=== PATIENT | female | born 1980 | race Caucasian/White ===

== ENCOUNTER 2022-01-01 19:44 | Observation (INO) | payer OTHER, MEDICAID, SELFPAY ==
[2022-01-01] VITALS (13 sets, daily range): BP systolic 108–133; BP diastolic 64–83; PULSE 70–98; RESP 12–20; TEMP 36.9–37.2; O2SAT 97–100; BMI 22.4
--- NOTE | 2022-01-01 20:00 | ED_ITS ---
HPI - General Adult General Chief complaint: Abdominal Pain Stated complaint: Severe ABD pain Time Seen by Provider: 01/01/22 19:53 Source: patient Mode of arrival: Family Vehicle Limitations: no limitations History of Present Illness HPI narrative: 41-year-old female. Has a history of a left-sided tubal ectopic and has had her fallopian tube removed on that side who is here for evaluation of right-sided abdominal discomfort. Is also having nausea. No vomiting. No diarrhea. She did urinate earlier today which she states improved some of the pressure that she is having in her right lower quadrant but did not take the pain completely away. Woke her from sleep last evening. No fevers. No vaginal bleeding. No rashes. Did take some ibuprofen prior to arrival without much improvement. Related Data Allergies Allergy/AdvReac Type Severity Reaction Status Date / Time sumatriptan [From Imitrex] Allergy Difficulty Verified 01/01/22 19:55 Breathing Review of Systems Constitutional Constitutional: Denies fever(s) Cardiovascular Cardiovascular: Reports system reviewed and no additional complaints, except as documented Respiratory Respiratory: Reports system reviewed and no additional complaints, except as documented Gastrointestinal Gastrointestinal: Reports as per HPI and Reports system reviewed and no additional complaints, except as documented Genitourinary Genitourinary: Reports system reviewed and no additional complaints, except as documented Musculoskeletal Musculoskeletal: Reports system reviewed and no additional complaints, except as documented Integumentary/Breasts Skin/Breast: Reports system reviewed and no additional complaints, except as documented Hematologic/Lymphatic On Anticoagulants: No Patient History Medical History Ectopic Social History Smoking Status: Current every day smoker Smoking Status: Current every day smoker alcohol intake frequency: a few times a month Substance Use Type: does not use Exam Initial Vital Signs Initial Vital Signs: Vital Signs Temperature 98.5 F 01/01/22 19:53 Pulse Rate 70 01/01/22 19:53 Respiratory Rate 18 01/01/22 19:53 Blood Pressure 129/73 01/01/22 19:53 Pulse Oximetry 99 01/01/22 19:53 Const General: cooperative and well developed HENMT Head: normal to inspection and normocephalic Resp Effort & Inspection: normal respiratory effort Cardio Rate: regular rate GI Inspection: normal to inspection and non-distended Palpation: No guarding and tender (Right lower quadrant/right adnexa) General: No CVA tenderness Back/Spine/Pelvis Back: No CVA tenderness Skin General: no rashes or lesions noted Neuro General: patient alert and patient awake Extrem General: normal to inspection Psych Appearance: grossly normal and well kempt Course Orders Ordered: ED Orders 01/01/22 20:00 US abdomen limited Stat US pelvic complete Stat Complete Blood Count AUTO DIFF Stat Comprehensive Metabolic Panel Stat Lipase Stat Test Serum,Qual Stat 01/01/22 22:17 Consult to General Surgery Urgent Sodium Chloride (Normal Saline 0.9%) 1,000 mls @ 125 mls/hr IV CONT SHAYNE Morphine Sulfate (Morphine 2 Mg/Ml Inj) 4 mg IV Q4HR PRN PRN Reason: Pain, Mild (1-3) Ondansetron HCl (Ondansetron 4 Mg/2 Ml Inj) 4 mg IV Q4HR PRN PRN Reason: Nausea And Vomiting Discontinued Medications Sodium Chloride (Normal Saline 0.9%) 1,000 mls @ 1,000 mls/hr IV BOLUS ONE Stop: 01/01/22 20:52 Last Infusion: 01/01/22 21:43 Dose: 0 mls/hr Documented by: Admin: 01/01/22 20:09 Dose: 1,000 mls/hr Documented by: VERONICA Piperacillin Sod/Tazobactam (Sod 4.5 gm/ Sodium Chloride) 100 mls @ 200 mls/hr IV NOW ONE Stop: 01/01/22 22:18 Morphine Sulfate (Morphine 4 Mg/Ml Inj) 4 mg IV NOW ONE Stop: 01/01/22 20:01 Last Admin: 01/01/22 20:08 Dose: 4 mg Documented by: VERONICA Morphine Sulfate (Morphine 4 Mg/Ml Inj) 4 mg IV NOW ONE Stop: 01/01/22 20:39 Last Admin: 01/01/22 20:46 Dose: 4 mg Documented by: KLEVER Ondansetron HCl (Ondansetron 4 Mg/2 Ml Inj) 4 mg IV NOW ONE Stop: 01/01/22 20:01 Last Admin: 01/01/22 20:09 Dose: 4 mg Documented by: VERONICA Vital Signs Vital signs: Vital Signs - 8 hr 01/01/22 19:53 01/01/22 20:48 01/01/22 20:53 Temperature 98.5 F Pulse Rate 70 74 74 Respiratory Rate 18 Blood Pressure 129/73 133/74 129/78 Pulse Oximetry 99 100 100 01/01/22 20:56 01/01/22 21:00 01/01/22 21:30 Temperature Pulse Rate 76 76 98 H Respiratory Rate Blood Pressure 127/76 116/71 133/64 Pulse Oximetry 99 99 98 01/01/22 21:40 Temperature Pulse Rate 80 Respiratory Rate 20 Blood Pressure 121/66 Pulse Oximetry 99 Medical Decision Making Lab Data Lab results reviewed: Yes I reviewed the patient's lab results. Result diagrams: 01/01/22 20:00 01/01/22 20:00 Labs: Lab Results 01/01/22 01/01/22 01/01/22 Range/Units 20:00 20:00 20:00 WBC 12.4 H (4.5-11.0) X10^3/uL RBC 4.31 (4.0-5.2) X10^6/uL Hgb 14.1 (12.0-16.0) g/dL Hct 40.7 (36-46) % MCV 94.5 (80-100) fL MCH 32.8 (26-34) PG MCHC 34.8 (30-36) % RDW 13.1 (11.6-14.8) % Plt Count 268 (150-400) X10^3/uL Neut % (Auto) 75.4 H (50-75) % Lymph % (Auto) 17.2 L (25-40) % Stearns % (Auto) 6.5 (3-14) % Eos % (Auto) 0.3 L (2-4) % Baso % (Auto) 0.6 (0-2) % Neut # (Auto) 9400 H (2549-1237) /uL Lymph # (Auto) 2100 (1783-1682) /uL Stearns # (Auto) 800 (0-900) /uL Eos # (Auto) 0 (0-450) /uL Baso # (Auto) 100 (0-100) /uL Sodium 139 (137-145) mmol/L Potassium 3.9 (3.4-5.1) mmol/L Chloride 106 (98-107) mmol/L Carbon Dioxide 27 (22-32) mmol/L BUN 11 (7-17) mg/dL Creatinine 0.77 (0.52-1.04) mg/dL Estimated GFR > 60 (>60) mL/min BUN/Creatinine Ratio 14.3 (6-22) Glucose 89 (70-100) mg/dL Calcium 9.0 (8.4-10.2) mg/dL Total Bilirubin 1.1 (0.2-1.3) mg/dL AST 37 H (14-36) IU/L ALT 17 (<35) IU/L Alkaline Phosphatase 52 (38-126) U/L Total Protein 7.5 (6.3-8.2) g/dL Albumin 4.5 (3.5-5.0) g/dL Globulin 3.0 (1.7-4.1) g/dL Albumin/Globulin Ratio 1.5 (1.0-2.8) Lipase 43 (23-300) U/L Serum , Qual Negative (Negative) Imaging Data US - abdomen: Radiologist's Impression: [place] [address] Ultrasound Report Signed Patient: Keya Gage MR#: [id number] : 1980 Acct:[id number] Age/Sex: 41 / F Date of Service: 01/01/22 Loc: ED Accession Number: [id number] ?? Procedure: US abdomen limited Ordering Provider: Samuel Witt D.O. PROCEDURE:? US ABDOMEN LIMITED ? INDICATIONS:? RIGHT LOWER QUADRANT PAIN ? TECHNIQUE:? Real-time focused scanning was performed of the abdomen with attention to the appendix, with image documentation.? ? COMPARISON:? None. ? FINDINGS:? Appendix visualization:? Not visualized ? Appendix measurements:? Not applicable ? Associated findings:? Echogenic fat:? Not seen Appendiceal compressibility:? Not applicable Appendicoliths:? Not applicable Nearby free fluid:? Not seen Lymphadenopathy:? Not seen Tenderness on exam:? Present. ? IMPRESSION:? Please also refer to the dedicated pelvic ultrasound performed today which identifies a small amount of free fluid at the right adnexa, what appears to be an abnormally enlarged appendix, a normal appearing right ovary, and also a normal appearing uterus.? Overall, therefore, the likelihood of appendicitis is considered significant and surgical consultation is recommended.? Findings discussed at this time in detail with the emergency room physician caring for the patient. ? ? Dictated by: Delvin Walker M.D. on 01/01/2022 at 22:04 ? ? Approved by: Delvin Walker M.D. on 01/01/2022 at 22:07 US - CREMATORY ATTENDANT: Radiologist's Impression: [place] [address] Ultrasound Report Signed Patient: Keya Gage MR#: [id number] : 1980 Acct:[id number] Age/Sex: 41 / F Date of Service: 01/01/22 Loc: ED Accession Number: [id number] ?? Procedure: US pelvic complete Ordering Provider: Samuel Witt D.O. PROCEDURE:? US PELVIC COMPLETE ? INDICATIONS:? RIGHT ADNEXAL PAIN ? TECHNIQUE:? Real-time scanning was performed of the pelvic organs, with image documentation.? Additional endovaginal scanning was necessary due to incomplete visualization of the adnexal and endometrial structures by transabdominal scanning.? ? COMPARISON:? None. ? FINDINGS:? ?? Uterus:? Uterus is anteverted and normal in size at 4.3 x 5.2 x 8.6 cm. The myometrium is homogeneous, normal. ? The endometrium measures 1.4 cm combined thickness.? ? Ovaries:? The right ovary measures 2.3 x 1.7 x 2.4 cm, normal.? The left ovary could not be seen due to bowel gas.. No adnexal masses are seen but there is a tubular structure at the right lower quadrant associated with significant tenderness, measuring up to 1.4 cm in maximal transverse dimension with an appearance suggestive of acute appendicitis, with a small amount of adjacent free fluid.. ? Other:? No pathologic free abdominal or pelvic fluid. ? ? IMPRESSION:? Suspect acute appendicitis, right lower quadrant, in this setting of normal appearing right ovary and a tubular 1.4 cm diameter structure identified during sonographic assessment of the right ovary.? Nonvisualization of the left ovary due to bowel gas.? Normal appearing uterus. ? Surgical consultation likely is warranted, and depending on the clinical status follow-up CT scanning also may be warranted at this time. ? Dictated by: Delvin Walker M.D. on 01/01/2022 at 21:58 ? ? Approved by: Delvin Walker M.D. on 01/01/2022 at 22:03?? MDM Narrative Medical decision making narrative: Afebrile, leukocytosis, right lower quadrant abdominal pain, test ne gative. Right ovary is unremarkable. No vaginal bleeding or discharge reported from the patient. Ultrasounds concerning for tubular structure in the right lower quadrant consistent with appendicitis. Discussed the case with Dr. Sánchez on-call with General surgery. Will start the patient on antibiotics. Will admit for observation. Did discuss this with the patient who expressed understanding and agreement. Discharge Plan Departure Patient Disposition: Admitted as Observation Clinical Impression: Acute appendicitis Admit Date/Time: 01/01/22 22:17 Admit Provider: Abeba Sánchez
--- NOTE | 2022-01-01 20:00 | DI.US.S_ITS ---
PROCEDURE: US ABDOMEN LIMITED INDICATIONS: RIGHT LOWER QUADRANT PAIN TECHNIQUE: Real-time focused scanning was performed of the abdomen with attention to the appendix, with image documentation. COMPARISON: None. FINDINGS: Appendix visualization: Not visualized Appendix measurements: Not applicable Associated findings: Echogenic fat: Not seen Appendiceal compressibility: Not applicable Appendicoliths: Not applicable Nearby free fluid: Not seen Lymphadenopathy: Not seen Tenderness on exam: Present. IMPRESSION: Please also refer to the dedicated pelvic ultrasound performed today which identifies a small amount of free fluid at the right adnexa, what appears to be an abnormally enlarged appendix, a normal appearing right ovary, and also a normal appearing uterus. Overall, therefore, the likelihood of appendicitis is considered significant and surgical consultation is recommended. Findings discussed at this time in detail with the emergency room physician caring for the patient. Dictated by: Delvin Walker M.D. on 01/01/2022 at 22:04 Approved by: Delvin Walker M.D. on 01/01/2022 at 22:07
--- NOTE | 2022-01-01 20:00 | DI.US.S_ITS ---
PROCEDURE: US PELVIC COMPLETE INDICATIONS: RIGHT ADNEXAL PAIN TECHNIQUE: Real-time scanning was performed of the pelvic organs, with image documentation. Additional endovaginal scanning was necessary due to incomplete visualization of the adnexal and endometrial structures by transabdominal scanning. COMPARISON: None. FINDINGS: Uterus: Uterus is anteverted and normal in size at 4.3 x 5.2 x 8.6 cm. The myometrium is homogeneous, normal. The endometrium measures 1.4 cm combined thickness. Ovaries: The right ovary measures 2.3 x 1.7 x 2.4 cm, normal. The left ovary could not be seen due to bowel gas.. No adnexal masses are seen but there is a tubular structure at the right lower quadrant associated with significant tenderness, measuring up to 1.4 cm in maximal transverse dimension with an appearance suggestive of acute appendicitis, with a small amount of adjacent free fluid.. Other: No pathologic free abdominal or pelvic fluid. IMPRESSION: Suspect acute appendicitis, right lower quadrant, in this setting of normal appearing right ovary and a tubular 1.4 cm diameter structure identified during sonographic assessment of the right ovary. Nonvisualization of the left ovary due to bowel gas. Normal appearing uterus. Surgical consultation likely is warranted, and depending on the clinical status follow-up CT scanning also may be warranted at this time. Dictated by: Delvin Walker M.D. on 01/01/2022 at 21:58 Approved by: Delvin Walker M.D. on 01/01/2022 at 22:03
[2022-01-01 20:06] LABS: Add Manual Diff / Slide Review NO; Basophils Absolute Auto 100 /uL (0-100); Basophils Percent Auto 0.6 % (0-2); Eosinophils Absolute Auto 0 /uL (0-450); Eosinophils Percent Auto 0.3 % (2-4); Hematocrit 40.7 % (36-46); Hemoglobin 14.1 g/dL (12.0-16.0); Lymphocytes Absolute Auto 2100 /uL (1100-4500); Lymphocytes Percent Auto 17.2 % (25-40); Mean Corpuscular HGB Conc 34.8 % (30-36); Mean Corpuscular Hemoglobin 32.8 PG (26-34); Mean Corpuscular Volume 94.5 fL (80-100); Monocytes Absolute Auto 800 /uL (0-900); Monocytes Percent Auto 6.5 % (3-14); Neutrophils Absolute Auto 9400 /uL (1500-7000); Neutrophils Percent Auto 75.4 % (50-75); Platelet Count 268 X10^3/uL (150-400); Red Blood Cell Count 4.31 X10^6/uL (4.0-5.2); Red Cell Distribution Width 13.1 % (11.6-14.8); White Blood Cell Count 12.4 X10^3/uL (4.5-11.0)
[2022-01-01] MEDS: MORPHINE 4 MG/ML INJ IV ×2 (20:08→20:46)
[2022-01-01] MEDS: SODIUM CHLORIDE 0.9% 1,000 ML 1000 ML IV (20:09)
[2022-01-01] MEDS: ONDANSETRON 4 MG/2 ML INJ IV (20:09)
[2022-01-01 20:30] LABS: Alanine Aminotransferase 17 IU/L (<35); Albumin 4.5 g/dL (3.5-5.0); Albumin Globulin Ratio 1.5 (1.0-2.8); Alkaline Phosphatase 52 U/L (38-126); Aspartate Aminotransferase 37 IU/L (14-36); BUN Creatinine Ratio 14.3 (6-22); Bilirubin Total 1.1 mg/dL (0.2-1.3); Blood Urea Nitrogen 11 mg/dL (7-17); Carbon Dioxide 27 mmol/L (22-32); Chloride 106 mmol/L (98-107); Estimated Glomerular Filt Rate > 60 mL/min (>60); Glucose 89 mg/dL (70-100); Lipase 43 U/L (23-300); Potassium 3.9 mmol/L (3.4-5.1); Sodium 139 mmol/L (137-145); Total Protein 7.5 g/dL (6.3-8.2)
[2022-01-01 20:35] LABS: HEMOLYSIS 56 (0-50)
[2022-01-01 20:41] LABS: Pregnancy Test Serum,Qual Negative (Negative)
[2022-01-01] MEDS: PIPERACILLIN/TAZO 4.5 GM in SODIUM CHLORIDE 0.9% 100 ML IV (22:35)
[2022-01-01] MEDS: SODIUM CHLORIDE 0.9% 1,000 ML 125 ML IV (22:36)
[2022-01-01] MEDS: MORPHINE 2 MG/ML INJ 4 MG IV (22:37)
[2022-01-02] VITALS (21 sets, daily range): BP systolic 85–104; BP diastolic 49–66; PULSE 57–88; RESP 10–20; TEMP 36.1–38.7; O2SAT 92–97; BMI 22.4
--- NOTE | 2022-01-02 | PATH_ITS ---
[facility] Accession Number: [id number] . 01 Material submitted: . appendix - APPENDIX . 01 Diagnosis: Appendix, Appendectomy: Acute suppurative appendicitis with perforation and serositis. Negative for dysplasia and malignancy. MRV 01/07/2022 0953 Local . 01 Electronically signed: . Florida Sanders MD, Pathologist NPI- [id number] . 01 Gross description: . Received in formalin and labeled with the patient's name and appendix and consists of a vermiform appendix measuring 6.1 cm in length and 1.1 cm in diameter with a small amount of attached yellow mesoappendix extending out to 1.0 cm. The serosa is crespo-plasencia with dilated vasculature and adherent possible suppurative exudate. A full thickness defect is noted measuring 1.1 cm in greatest dimension and is located 1.0 cm from the surgical margin. The surgical margin is received closed with sutures and is inked blue. Serial sectioning reveals a lumen obstructed by two brown solid structures consistent with fecalith ranging from 1.8 to 2.0 cm in greatest dimension. The luminal diameter measures up to 1.0 cm in greatest dimension. The braun are dusky plasencia and measure up to 0.3 cm thick. No lesions are identified. Evs Manager sections are submitted as follows: . A1: One-half of the distal tip and surgical margin. A2: Evs Manager cross sections to include area full thickness defect. ([id number]) /[facility] 01/06/2022 1801 Local . 01 Pathologist provided ICD-10: K35.80 . 01 CPT . 832758 Specimen Comment: A courtesy copy of this report has been sent to [phone] Performed at: 01 [facility] [address], [place], [place] [id number] MD Jose Lee MD Phone: [phone]
[2022-01-02] MEDS: MORPHINE 2 MG/ML INJ 4 MG IV ×2 (02:32→06:14)
--- NOTE | 2022-01-02 05:48 | PC.NURSE ---
Pt arrived with pain from ED. Rested uncomfortably until next dose at 0230. Slept well for rest of night, nest dose given at 0610, pt is more comfortable but still in pain. Pt taking Suboxone regularly as a home medication. Last dose of suboxone on 01/01 in the am.
[2022-01-02 06:33] LABS: Add Manual Diff / Slide Review NO; Basophils Absolute Auto 0 /uL (0-100); Basophils Percent Auto 0.2 % (0-2); Eosinophils Absolute Auto 0 /uL (0-450); Hematocrit 35.6 % (36-46); Hemoglobin 12.6 g/dL (12.0-16.0); Lymphocytes Absolute Auto 900 /uL (1100-4500); Lymphocytes Percent Auto 6.4 % (25-40); Mean Corpuscular HGB Conc 35.3 % (30-36); Mean Corpuscular Volume 93.5 fL (80-100); Monocytes Absolute Auto 800 /uL (0-900); Monocytes Percent Auto 5.5 % (3-14); Neutrophils Absolute Auto 12700 /uL (1500-7000); Neutrophils Percent Auto 87.9 % (50-75); Platelet Count 224 X10^3/uL (150-400); Red Blood Cell Count 3.81 X10^6/uL (4.0-5.2); Red Cell Distribution Width 13.1 % (11.6-14.8); White Blood Cell Count 14.5 X10^3/uL (4.5-11.0)
[2022-01-02] MEDS: PIPERACILLIN/TAZO 3.375 GM in SODIUM CHLORIDE 0.9% 100 ML IV (06:41)
[2022-01-02] MEDS: KETOROLAC 30 MG/ML VIAL 15 MG IV ×2 (06:41→17:46)
--- NOTE | 2022-01-02 06:44 | DI.MRI.S_ITS ---
PROCEDURE: MR ABDOMEN WO/W CON INDICATIONS: appendicitis TECHNIQUE: Coronal HASTE, axial 2D FLASH in- and [id number]; axial breath-hold T2 FSE. Dynamic axial VIBE during the administration of contrast; post-contrast coronal VIBE or 2D FLASH with fat saturation from the hepatic dome to the iliac crests. Optional diffusion weighted imaging and ADC may be performed. COMPARISON: [facility], , US ABDOMEN LIMITED, 01/01/2022, 22:32. FINDINGS: Image quality: Excellent. Lung bases: No basal pleural effusions. Heart size is normal. Solid organs: Liver is normal in size and enhancement. Gallbladder is grossly unremarkable. Is moderate extrahepatic biliary ductal dilatation measuring 10 mm. Pancreas is normal in morphology. Spleen is normal in size and enhancement. No adrenal nodules. Both kidneys demonstrate normal size and enhancement, without hydronephrosis. Nodes and vessels: No retroperitoneal or mesenteric adenopathy by size criteria. Aorta and inferior vena cava are normal in size. Bowel and peritoneum: Unenhanced bowel loops are normal in caliber. Small amount of free fluid in pelvis, within physiological limits in a menstruating female. Blind-ending tubular structure within the right lower quadrant measuring 14 mm diameter. Bones and soft tissues: No ventral hernias. Bone marrow is normal in overall signal. IMPRESSION: 1. Findings consistent with acute appendicitis. 2. Small amount of free fluid, possibly indicating rupture. 3. Findings discussed with Dr. Abeba Sánchez on 01/02/2022 at 09:11 hours. Dictated by: Gayle Luu M.D. on 01/02/2022 at 9:05 Approved by: Gayle Luu M.D. on 01/02/2022 at 9:12
[2022-01-02] MEDS: HYDROCODONE/ACET 5/325 TABLET 1 TAB PO (09:08)
[2022-01-02] MEDS: SODIUM CHLORIDE 0.45% 1,000 ML 100 ML IV ×2 (09:10→14:13)
--- NOTE | 2022-01-02 10:27 | P.HP_ITS ---
History of Present Illness History of Present Illness Date Patient Seen: 01/02/22 Time Patient Seen: 10:27 Date of Onset of Symptoms: 01/01/22 Chief complaint: Severe ABD pain Narrative: 24 hours of abdominal pain on presentation to the ED. Localizinging in RLQ, anorexia, no diarrhea, +fever. Pain improved with antibiotics and pain meds. No previous events. Lives in [place]. Patient History Medical History Ectopic Family & Social History Social History: household members family Prior Living Arrangements House Safety & Behavioral: Feels Safe in Current Yes Environment Been Physically Hurt or No Threatened By a Person Tobacco & Substance use: Smoking Status Current every day smoker alcohol intake frequency a few times a month Substance Use Type does not use Meds Home Medications and Allergies Home Medications Medication Instructions Recorded Confirmed Type buprenorphine HCl 8 mg sublingual 8 mg SUBLINGUAL BID 01/01/22 01/01/22 History tablet multivitamin with iron 1 tab PO DAILY 01/01/22 01/01/22 History Allergies Allergy/AdvReac Type Severity Reaction Status Date / Time sumatriptan [From Imitrex] Allergy Difficulty Verified 01/01/22 19:55 Breathing Review of Systems Review of Systems ROS: Yes All systems reviewed with the patient and are negative except as otherwise documented Exam Vital Signs (past 8 hours): - 01/02/22 05:00 01/02/22 06:59 01/02/22 09:00 Temperature 100.1 F H 101.6 F H 98.2 F Pulse Rate 88 85 71 Respiratory Rate 20 14 18 Blood Pressure 102/66 98/57 L 98/58 L Pulse Oximetry 97 97 Oxygen Delivery Method Room Air Oxygen Flow Rate 0 Const General: cooperative Nutritional Appearance: underweight Orientation: alert and oriented x3 [facility] Head: normocephalic and atraumatic Ears: hearing grossly normal bilaterally Eyes General: appearance normal, both eyes and all related structures Sclera: sclerae normal Neck Neck: trachea midline Chest Chest: normal inspection of the chest Resp Effort & Inspection: normal respiratory effort and able to speak in complete sentences Cardio Rate: tachycardic Rhythm: regular rhythm GI Inspection: normal to inspection Palpation: soft and tender (RLQ tenderness to palpation) Skin General: no rashes or lesions noted and elasticity normal Neuro General: patient alert and patient oriented x3 Cognition: normal cognition Extrem General: full ROM Psych Appearance: grossly normal Mental Status: mental status grossly normal Affect: normal affect Judgment: judgment good Objective Labs Result Diagrams: 01/02/22 06:23 01/01/22 20:00 Labs: Laboratory Results - last 24 hr 01/01/22 01/01/22 01/01/22 20:00 20:00 20:00 WBC 12.4 H RBC 4.31 Hgb 14.1 Hct 40.7 MCV 94.5 MCH 32.8 MCHC 34.8 RDW 13.1 Plt Count 268 Neut % (Auto) 75.4 H Lymph % (Auto) 17.2 L Loving % (Auto) 6.5 Eos % (Auto) 0.3 L Baso % (Auto) 0.6 Neut # (Auto) 9400 H Lymph # (Auto) 2100 Loving # (Auto) 800 Eos # (Auto) 0 Baso # (Auto) 100 Sodium 139 Potassium 3.9 Chloride 106 Carbon Dioxide 27 BUN 11 Creatinine 0.77 Estimated GFR > 60 BUN/Creatinine Ratio 14.3 Glucose 89 Calcium 9.0 Total Bilirubin 1.1 AST 37 H ALT 17 Alkaline Phosphatase 52 Total Protein 7.5 Albumin 4.5 Globulin 3.0 Albumin/Globulin Ratio 1.5 Lipase 43 Serum , Qual Negative 01/02/22 06:23 WBC 14.5 H RBC 3.81 L Hgb 12.6 Hct 35.6 L MCV 93.5 MCH 33.0 MCHC 35.3 RDW 13.1 Plt Count 224 Neut % (Auto) 87.9 H Lymph % (Auto) 6.4 L Loving % (Auto) 5.5 Eos % (Auto) 0.0 L Baso % (Auto) 0.2 Neut # (Auto) 11501 H Lymph # (Auto) 900 L Loving # (Auto) 800 Eos # (Auto) 0 Baso # (Auto) 0 Sodium Potassium Chloride Carbon Dioxide BUN Creatinine Estimated GFR BUN/Creatinine Ratio Glucose Calcium Total Bilirubin AST ALT Alkaline Phosphatase Total Protein Albumin Globulin Albumin/Globulin Ratio Lipase Serum , Qual Assessment & Plan Assessment & Plan narrative: Appendicitis not responding to antibiotics Takes Subutex Plan: OR for lap appy COVID-19 COVID-19 status: Negative Time Spent With Patient Time with patient: 30 to 49 minutes with 50% spent counseling/coordinating care Critical Care time: I spent a total of [] minutes of critical care time on this patient's care today; this time is exclusive of procedural time.
[2022-01-02 10:47] LABS: COVID19 -Nasal RAPID Negative (Negative)
[2022-01-02] MEDS: LACTATED RINGERS 1,000 ML 84 ML IV ×2 (11:10→12:43)
[2022-01-02] MEDS: ACETAMINOPHEN IV 1,000 MG/100 ML VIAL 400 MG IV (11:30)
[2022-01-02] MEDS: BUPIVACAINE 0.25% (PF) 30 ML, EPINEPHrine 0.15 MG INJ (11:35)
--- NOTE | 2022-01-02 11:52 | SUR.OPER ---
Supine on padded OR bed, head on pillow, right arm secured on padded arm board at <90 degrees abduction, left arm tucked. Legs uncrossed, safety belt at thigh, gel pad under bilateral heels.
--- NOTE | 2022-01-02 12:12 | CM.DANOTE ---
Initial Discharge Plan Assessment: Case received, EMR reviewed and met with patient's lalito Mazariegos in the patient's room. He states that patient had just left for surgery and he reports he was told she would be returning to room about 13:30. 41 year old female who was admitted yesterday pm to care of surgical team. PCP: Unknown Payer: [employer], Medicaid Patient was admitted with severe abdominal pain and nausea. Imaging shows appendicitis. She is now in the OR. P: Lalito states that he and patient were told she could return home this afternoon which is their desire. Will return this afternoon to complete discharge planning assessment. (Of note, she lives in [facility] and has support with her mother and he lives in [place]. He states he will provide transportation upon dc and care for her a few days before she returns to [place].) Karma Salazar RN/DCP Discharge Planning/Care Management CM Discharge Assessment Start: 01/02/22 12:07 Freq: Status: Active Protocol: Document 01/02/22 12:09 (Rec: 01/02/22 12:12 [id number]) Discharge Planning Assessment Assigned Alarm Technician aKrma Salazar RN/Side Seam Machine Operator Advance Directives? No History Provided By Significant Other,Medical Record Prior Living Arrangements House Household Members family Type of transporation used prior to Relies on Others admit Is patient alert and oriented? Yes Barriers to Discharge No Discharge Plan Home Transportation Arrangement Lalito Mazariegos to provide Referrals Initiated None needed Whiteboard Updated in Patient Room with Yes name and ext. # of Alarm Technician Review Status In Process Next Review Type Continued Stay Review
--- NOTE | 2022-01-02 12:19 | PM.OP.1 ---
Operative Date/Time/Diagnoses Date of procedure: 01/02/22 Time of procedure: 12:20 Pre-op diagnosis: Appendicitis Post-op diagnosis: other (Ruptured appendicitis) Procedure & Clinicians Procedure: Laparoscopic appendectomy Same procedure as scheduled: Yes Indications: Appendicitis Surgeon: Abeba Sánchez Click Yes if Unassisted: Yes Anesthesia Type: General and Local Operative Notes Findings: Preop diagnosis: Acute appendicitis Postop diagnosis: Ruptured appendicitis Procedure: Laparoscopic appendectomy Findings: Early ruptured appendicitis with visible fecalith this at the rupture point Surgeon: Mayela Sánchez MD Anesthesiologist: Obdulia Carrasquillo MD Findings: Ruptured appendicitis with visible fecal liths at site of perforation Procedure: Patient placed in a supine position. Prepped and draped sterile fashion. Infraumbilical port site was placed using open technique a 12 mm port. Insufflation began all other ports were placed under direct vision including a 5 mm port in the suprapubic area and a 5 mm port left lateral abdomen. Appendix was identified. Turbid fluid as well as visible fecal lift seen upon mobilization of the appendix. I then took down the appendiceal mesentery with electrocautery and excellent hemostasis. The base of the appendix was amputated with a YUMIKO stapling device. Appendix was placed into an Endo-Catch bag pulled through the umbilical port site intact. Abdomen was irrigated and suction to a clear return, all visible fecal balls were gathered and placed into the bag were suctioned into the device. I then placed a 15 Azeri Niels drain into the pelvis looping it over to the operative site. This was brought out through a 5 mm port in suprapubic area. Sutured to the skin with 3-0 nylon. I then removed all ports and began closure. Closure consisted of interrupted 0 Vicryl for fascial closure. Skin was closed a running 4-0 Vicryl. Steri-Strips and sterile dressings were placed. Patient was awakened, extubated, taken to recovery room in stable condition with needle, instrument, sponge counts correct. Blood loss: 10 mL Specimen: Appendix Closure Type: primary Specimen(s): other (Appendix) Applied: drain(s) (15 Azeri) Estimated Blood Loss (mL): 10 Blood products transfused: none Complications: none Post-operative Condition: stable Disposition: PACU Plan for aftercare: antibiotics, observation and repeat am labs.
[2022-01-02] MEDS: fentaNYL 100 MCG/2 ML INJ IV ×2 (12:34→12:52)
[2022-01-02] MEDS: HYDROMORPHONE 2 MG INJ IV ×2 (12:54→13:00)
[2022-01-02] MEDS: OXYCODONE IR 5 MG TABLET PO (13:21)
[2022-01-02] MEDS: AMOXICILLIN/CLAV 875/125 MG 1 TAB PO ×2 (14:13→20:29)
[2022-01-02] MEDS: ACETAMINOPHEN 325 MG TABLET 650 MG PO (17:47)
--- NOTE | 2022-01-02 18:18 | PC.NURSE ---
Pt is AxOx4, independent and cooperative. VSS, c/o on abdomen and pain is controlled well with her routine Tyl and IV Toradol. Pt is eating and tolerating well. Pt already voided. MOMO drain is draining 40ml serosanguonous fluid. Lap sites C/D/I. No other changes. Continue monitor.
[2022-01-02] MEDS: OXYCODONE IR 10 MG TABLET PO (21:57)
[2022-01-03] MEDS: OXYCODONE IR 10 MG TABLET PO ×3 (04:40→12:03)
[2022-01-03] MEDS: ACETAMINOPHEN 325 MG TABLET 650 MG PO ×2 (05:02→12:02)
[2022-01-03 05:09] VITALS: BP 117/72; PULSE 68; RESP 16; TEMP 37.5; O2SAT 95
--- NOTE | 2022-01-03 05:33 | PC.NURSE ---
Shift Note: Patient was alert and orientedx4, complained of post op pain, with post op lap site x3, dressing clean, dry and intact, MOMO intact and draining well with serosanguinous output. Vital signs are stable and within acceptable limits. Patient was able to get up to use the toilet with minimal assistance.
[2022-01-03] MEDS: KETOROLAC 30 MG/ML VIAL 15 MG IV (05:48)
[2022-01-03 05:58] LABS: Add Manual Diff / Slide Review NO; Basophils Absolute Auto 100 /uL (0-100); Basophils Percent Auto 0.3 % (0-2); Eosinophils Absolute Auto 0 /uL (0-450); Hematocrit 35.1 % (36-46); Hemoglobin 12.3 g/dL (12.0-16.0); Lymphocytes Absolute Auto 800 /uL (1100-4500); Lymphocytes Percent Auto 5.3 % (25-40); Mean Corpuscular Hemoglobin 33.1 PG (26-34); Mean Corpuscular Volume 94.6 fL (80-100); Monocytes Absolute Auto 800 /uL (0-900); Neutrophils Absolute Auto 13500 /uL (1500-7000); Neutrophils Percent Auto 89.4 % (50-75); Platelet Count 210 X10^3/uL (150-400); Red Blood Cell Count 3.71 X10^6/uL (4.0-5.2); Red Cell Distribution Width 13.1 % (11.6-14.8); White Blood Cell Count 15.1 X10^3/uL (4.5-11.0)
[2022-01-03 07:00] VITALS: BP 118/74; PULSE 54; RESP 17; TEMP 36.8; O2SAT 97
[2022-01-03] MEDS: AMOXICILLIN/CLAV 875/125 MG 1 TAB PO (08:01)
[2022-01-03] MEDS: NAPROXEN 250 MG TABLET 500 MG PO (08:01)
--- NOTE | 2022-01-03 08:15 | P.PN_ITS ---
Subjective Subjective Date Patient Seen: 01/03/22 Time Patient Seen: 08:15 Interval history: Still feels uncomfortable. Is from just outside [place] and boy friend needs to go to [place] at 6 pm. Exam Vital Signs (past 8 hours): - 01/03/22 05:09 01/03/22 07:00 Temperature 99.5 F 98.2 F Pulse Rate 68 54 L Respiratory Rate 16 17 Blood Pressure 117/72 118/74 Pulse Oximetry 95 97 Oxygen Delivery Method Room Air Oxygen Flow Rate 0 Narrative Exam Narrative: abd is soft, slight distended. drain is serous. incisional tenderness. Objective Labs Result Diagrams: 01/03/22 05:40 01/01/22 20:00 Labs: Laboratory Results - last 24 hr 01/02/22 01/03/22 09:50 05:40 WBC 15.1 H RBC 3.71 L Hgb 12.3 Hct 35.1 L MCV 94.6 MCH 33.1 MCHC 35.0 RDW 13.1 Plt Count 210 Neut % (Auto) 89.4 H Lymph % (Auto) 5.3 L [place] % (Auto) 5.0 Eos % (Auto) 0.0 L Baso % (Auto) 0.3 Neut # (Auto) 99715 H Lymph # (Auto) 800 L [place] # (Auto) 800 Eos # (Auto) 0 Baso # (Auto) 100 SARS-CoV-2 (PCR) Negative [facility] Medical History Ectopic Social History household members: family Smoking Status: Current every day smoker Assessment & Plan Post-op Postoperative Procedures: Procedures Operation Date: 01/02/22 11:00 Actual Procedure Side Surgeon p Laparoscopic Appendectomy Abeba Sánchez MD Postoperative day: 1 Postoperative status narrative: WBC at 15 on Augmentin BID, no fever, drain is serous and minimal. Postoperative plan narrative: Discussed staying another day. She would like to go today. Agreed to drain removal and repeat CBC at 1300. If WBC is still elevated or fever occurs she will stay, o/w potential discharge on Augmentin later today.
[2022-01-03 10:49] VITALS: BP 110/65; PULSE 60; RESP 18; TEMP 36.8; O2SAT 94
[2022-01-03 12:59] LABS: Add Manual Diff / Slide Review NO; Basophils Absolute Auto 0 /uL (0-100); Basophils Percent Auto 0.2 % (0-2); Eosinophils Absolute Auto 0 /uL (0-450); Eosinophils Percent Auto 0.2 % (2-4); Hematocrit 35.4 % (36-46); Hemoglobin 12.3 g/dL (12.0-16.0); Lymphocytes Absolute Auto 1500 /uL (1100-4500); Lymphocytes Percent Auto 8.6 % (25-40); Mean Corpuscular HGB Conc 34.6 % (30-36); Mean Corpuscular Hemoglobin 32.9 PG (26-34); Monocytes Absolute Auto 1000 /uL (0-900); Monocytes Percent Auto 5.7 % (3-14); Neutrophils Absolute Auto 14800 /uL (1500-7000); Neutrophils Percent Auto 85.3 % (50-75); Platelet Count 234 X10^3/uL (150-400); Red Blood Cell Count 3.73 X10^6/uL (4.0-5.2); Red Cell Distribution Width 13.2 % (11.6-14.8); White Blood Cell Count 17.4 X10^3/uL (4.5-11.0)
[2022-01-03] MEDS: levoFLOXacin 500 MG/100 ML PIGGYBACK 100 MG IV (13:40)
--- NOTE | 2022-01-03 13:45 | PM.DS.1 ---
History of Present Illness History of Present Illness Date Patient Seen: 01/03/22 Time Patient Seen: 13:12 Chief complaint: Severe ABD pain Narrative: 24 hours of abdominal pain on presentation to the ED. Localizinging in RLQ, anorexia, no diarrhea, +fever. Pain improved with antibiotics and pain meds. No previous events. Lives in [place]. Discharge Providers Provider Date of admission: 01/01/22 22:17 Discharge Date: 01/03/22 Consults: 01/01/22 22:17 Consult to General Surgery Urgent Comment: Consulting Provider: Abeba Sánchez Reason for consultation: admission Has provider been notified: Yes Discharge provider: Abeba Sánchez MD Summary Hospital Course Discharge Diagnosis: ruptured appendicitis Hospital Course: Laparoscopic appendectomy after no response to IV Zosyn. Had drain post op but WBC remained elevated on Augmentin, otherwise felt better. Due to travel issues, patient requested a more potent antibiotic and discharge. Her boy friend will drive her home in [place]. she agrees to IV Cipro and Flagyl prior to discharge w the same po. Status at Discharge Cognitive/behavioral status at discharge: oriented Functional status at discharge: independent ambulation Overall status at discharge: patient is progressing back to baseline Time Spent with Patient Time spent: Greater than 30 minutes Exam Vital Signs (past 8 hours): - 01/03/22 07:00 01/03/22 10:49 Temperature 98.2 F 98.2 F Pulse Rate 54 L 60 Respiratory Rate 17 18 Blood Pressure 118/74 110/65 Pulse Oximetry 97 94 Oxygen Delivery Method Room Air Oxygen Flow Rate 0 Narrative Exam Narrative: abdomen is benign Const General: cooperative Objective Labs Result Diagrams: 01/03/22 12:56 01/01/22 20:00 Labs: Laboratory Results - last 24 hr 01/03/22 01/03/22 05:40 12:56 WBC 15.1 H 17.4 H RBC 3.71 L 3.73 L Hgb 12.3 12.3 Hct 35.1 L 35.4 L MCV 94.6 95.0 MCH 33.1 32.9 MCHC 35.0 34.6 RDW 13.1 13.2 Plt Count 210 234 Neut % (Auto) 89.4 H 85.3 H Lymph % (Auto) 5.3 L 8.6 L [place] % (Auto) 5.0 5.7 Eos % (Auto) 0.0 L 0.2 L Baso % (Auto) 0.3 0.2 Neut # (Auto) 46267 H 52652 H Lymph # (Auto) 800 L 1500 [place] # (Auto) 800 1000 H Eos # (Auto) 0 0 Baso # (Auto) 100 0 PFSH Medical History Ectopic Social History household members: family Smoking Status: Current every day smoker Discharge Assessment & Plan Assessment and Plan Assessment: Clinically improved but persistent elevated WBC. Plan is discharge with Cipro/Flagyl combo for higher blood concentration. Follow up w PCP at home. Discharge Plan Discharge Plan Patient Disposition: Home Discharge orders & Medications Prescriptions: New naproxen 250 mg Tablet 500 mg PO BIDWM Qty: 20 0RF oxycodone 10 mg Tablet 10 mg PO Q3HR PRN (Reason: Pain, Severe (7-10)) Qty: 20 0RF ciprofloxacin HCl [Cipro] 500 mg tablet 500 mg PO BID Qty: 20 0RF metronidazole [Flagyl] 375 mg capsule 750 mg PO BID Qty: 20 0RF Continued multivitamin with iron Tablet 1 tab PO DAILY 0RF buprenorphine HCl 8 mg Tablet, Sublingual 8 mg SUBLINGUAL BID 0RF Follow up/Referrals: Abeba Sánchez MD [Physician] - Miscellaneous,DoctorMD [Non-Staff] - Diet/Activity/Treatments Diet: Diet as Tolerated Activity: no lifting more than 15 lbs for 4 weeks Skin/Wound/Dressing Care Report to your healthcare provider any signs of infection, such as:: chills, fever, night sweats, increased pain, unusual drainage and unusual redness Dressing: change dressing daily, leave steri strips in place for 10 days Visit Report/Discharge Packet Instructions: DI for an Appendectomy Stand Alone Forms: Surgery Discharge Discharge Data Attending Provider: Abeba Sánchez
--- NOTE | 2022-01-03 13:55 | CM.DPC ---
DCP Discharge Home Per Surgeon, pt's labs are in normal range and pain seems to be controlled and drain discontinued and pt medically stable to d/c home today with Sig Other assist and no identified barriers to discharge and pt wanting to d/c today. Per RN, pt has been able to void independently and independent in room and no concerns noted. Plan: Patient to d/c home today via family POV and no further SW needs at this time. DELBERT Correa
--- NOTE | 2022-01-03 14:11 | PC.NURSE ---
Pt is AxOx4, independent and cooperative. VSS except WBC-17.4 which is higher than yesterday. Pt was supposed to stay over for IV ABO but pt insisted to go home and want to home with PO ABO. Thus, MD is called and recieved order for IV antibiotic one dose and d/c with PO ABO and pain med. Pain is controlled well with her routine Tylenol as well as PRN Oxy 10mg. Incisions looking good, MOMO removed and it has very minimal drainage. D/c instructions given including s/s infection, pain med and s/e. No other changes.
[2022-01-03 14:55] VITALS: BP 124/77; PULSE 52; RESP 18; TEMP 37.2; O2SAT 98
--- NOTE | 2022-01-25 10:55 | PC.NURSE ---
Late Entry; Piperacillin infusion initiated 01/02 at 0641, complete 1042. Levaquin infusion initiated 01/03 at 1340, complete 1441.
== END 2022-01-03 15:10 | disposition home or self-care (01) ==
LOC: ED 22:17 → AC 22:18
PROVIDERS: Admitting Provider Surgery; Emergency Provider Emergency Medicine; Referring Provider Emergency Medicine; Visit Provider Surgery
PROC: 0DTJ4ZZ Resection of Appendix, Percutaneous Endoscopic Approach (ICD-10-PCS; CPT 44970; principal; 2022-01-02 11:00)
DX: K35.32 Acute appendicitis with perforation, localized peritonitis, and gangrene, without abscess (principal); K38.1 Appendicular concretions; Z20.822 Contact with and (suspected) exposure to COVID-19
CPT/HCPCS: 44970; 36415; 74183; 76705; 76830; 76856; 80053; 83690; 84703; 85025; 87635; 96361; 96365; 96366; 96367; 96375; 96376; 99219; 99284; C9803; G0378; A9579; J0131; J0171; J1100; J1170; J1885; J1956; J2270; J2405; J2543; J2704; J3010; J7050